=== PATIENT | male | born 1995 | race Caucasian/White ===

== ENCOUNTER 2023-06-23 13:08 | Outpatient (AMB) | payer OTHER, SELFPAY ==
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
[2023-06-23 13:19] VITALS: BP 98/68; PULSE 68; RESP 14; TEMP 36.9; O2SAT 100; BMI 30.8
== END 2023-06-23 14:09 | disposition home or self-care (01) ==
PROVIDERS: Visit Provider Internal Medicine
DX: R51.9 Headache, unspecified (principal); F07.81 Postconcussional syndrome; V89.2XXA Person injured in unspecified motor-vehicle accident, traffic, initial encounter; Z04.3 Encounter for examination and observation following other accident; Z76.89 Persons encountering health services in other specified circumstances; R53.83 Other fatigue
CPT/HCPCS: 99203; G2211

== ENCOUNTER 2023-07-26 13:13 | Outpatient (REF) | payer OTHER, SELFPAY ==
--- NOTE | ~2023-07-26 | CT_ITS ---
EXAMINATION: CT HEAD WITH/WITHOUT CONTRAST CLINICAL INFORMATION: Postconcussion syndrome. COMPARISON: No relevant prior imaging. TECHNIQUE: Contiguous axial imaging was performed from the skull base to vertex before and after the administration of 85 mL of Omnipaque [address] examination was performed using dose optimization techniques as appropriate, variously including the following: *Automated exposure control *Adjustment of mA and/or kV according to patient size (this includes techniques or standardized protocols for targeted exams where dose is matched to indication/reason for exam; i.e. extremities or head) *Use of iterative reconstruction technique DLP: 1645 mGy-cm FINDINGS: There is no acute intracranial hemorrhage or abnormal extra-axial collection. Postcontrast images reveal no abnormal intracranial mass or enhancement. There is no intracranial mass effect or midline shift. Lateral and third ventricles are normal. No hydrocephalus. Lo-white matter differentiation is preserved and there is no evidence of acute territorial infarct. The calvarium and skull base are grossly intact. No mastoid or middle ear effusion. Mild mucosal thickening within the sphenoid sinus. Otherwise no active paranasal sinus disease. CT/CT head/brain wo/w IV con IMPRESSION: Unremarkable CT scan of the head. No evidence of acute territorial infarct or hemorrhage. No intracranial mass effect or hydrocephalus.
[2023-07-26] MEDS: iohexoL 350 MG/ML 100 ML INFUS..BTL IV (13:50)
== END 2023-07-26 13:14 | disposition home or self-care (01) ==
LOC: HO.CT 13:13
PROVIDERS: PCP Internal Medicine; Visit Provider Internal Medicine
DX: R53.83 Other fatigue (principal); R51.9 Headache, unspecified; F07.81 Postconcussional syndrome; V89.2XXS Person injured in unspecified motor-vehicle accident, traffic, sequela
CPT/HCPCS: 70470; Q9967